=== PATIENT | female | born 1965 | race Caucasian/White ===

== ENCOUNTER 2021-03-24 19:44 | Inpatient (IN) | payer BC ==
[2021-03-24] MEDS ORDERED: Benzonatate 100 MG CAP ONE (20:29)
[2021-03-24] MEDS ORDERED: Enoxaparin Sodium 40 MG/0.4 ML SYRINGE ONE (20:30)
[2021-03-24 22:12] LABS: CKMB 13.7 ng/mL (0-6.6)
[2021-03-25] MEDS ORDERED: Acetaminophen 325 MG TAB ONE (00:06)
[2021-03-25 00:39] LABS: Troponin I 0.627 ng/mL (< 0.028)
[2021-03-25 04:27] LABS: Troponin I 0.443 ng/mL (< 0.028)
[2021-03-25] MEDS ORDERED: traMADol HCl 50 MG TAB ONE (05:02)
[2021-03-25 05:42] VITALS: BMI 15.2
[2021-03-25] MEDS ORDERED: Ondansetron PF 4 MG/2 ML Vial IVP PRN (06:55)
[2021-03-25 07:27] LABS: #Lymphocytes 1.1 thou/uL (1.20-3.40); #Monocytes 0.6 thou/uL (0.11-0.59); #Neutrophils 3.4 thou/uL (1.40-6.50); %Basophils 0.3 % (0.0-1.0); %Eosinophils 0.1 % (0.0-10.0); %Lymphocytes 21.7 % (21.0-51.0); %Monocytes 10.8 % (0.0-10.0); %Neutrophils 67.1 % (42.0-75.0); Hemoglobin 14.3 g/dL (12.0-16.0); Mean Corpuscular Hemoglobin 35.7 pg (27.0-31.0); Platelet Count 196 thou/uL (130-400); Red Blood Cell (RBC) Count 3.99 mill/uL (4.20-5.40); White Blood Cell (WBC) Count 5.1 thou/uL (4.8-10.8)
[2021-03-25 07:42] LABS: ALT (SGPT) 27 U/L (8-55); AST (SGOT) 35 U/L (5-34); Albumin 3.6 g/dL (3.5-5.0); Alkaline Phosphatase 50 U/L (40-110); Bilirubin, Direct 0.1 mg/dL (0.1-0.3); Bilirubin, Total 0.2 mg/dL (0.2-1.2); Protein, Total 6.3 g/dL (6.0-8.3)
[2021-03-25 07:44] LABS: Anion Gap 8 mmol/L (10-20); BUN (Urea Nitrogen) 17 mg/dL (9.8-20.1); Calc. Creatinine Clearance 55 mL/min (70-130); Calcium 9.1 mg/dL (7.8-10.44); Carbon Dioxide 33 mmol/L (22-29); Cardiac Risk 2.5 (Less than 4.5); Chloride 103 mmol/L (98-107); Cholesterol 145 mg/dl (< 200 Desired); Glucose 96 mg/dL (70-105); HDL Cholesterol 57 mg/dL (>60 Neg Risk); LDL Cholesterol, Calculated 76 mg/dL; Potassium 4.3 mmol/L (3.5-5.1); Sodium 140 mmol/L (136-145); Triglycerides 60 mg/dL (Less than 150)
[2021-03-25 08:10] LABS: MDiff Complete? YES; Macrocytosis SLIGHT = 6-15 cells (100X) (0-5/hpf); Platelet Morphology Comment Appears Adequate; Polychromasia SLIGHT = 2-3 cells (100X) (0-2/hpf)
[2021-03-25] MEDS: methylPREDNISolone Sod Succ 40 MG VIAL IVP SCH ×3 (08:38→21:51)
[2021-03-25] MEDS ORDERED: Famotidine 20 MG TAB ONE (09:25)
[2021-03-25] MEDS ORDERED: methylPREDNISolone Sod Succ 40 MG VIAL ONE (09:25)
[2021-03-25] MEDS ORDERED: Ondansetron PF 4 MG/2 ML Vial ONE (09:42)
[2021-03-25] MEDS: Oseltamivir 75 MG CAP PO SCH ×2 (09:50→21:40)
[2021-03-25] MEDS: guaiFENesin ER 600 MG TAB PO SCH ×2 (09:50→21:40)
[2021-03-25] MEDS: Famotidine 20 MG TAB PO SCH ×2 (09:50→21:40)
[2021-03-25] MEDS ORDERED: Clopidogrel Bisulfate 300 MG TAB PO SCH (10:15)
[2021-03-25] MEDS: cefTRIAXone\\ROCEPHIN 2 GM in Sodium Chloride 0.9% 100 ML IVPB SCH (15:54)
[2021-03-25] MEDS: Azithromycin 500 MG in Sodium Chloride 0.9% 250 ML 250 ML IVPB SCH (17:47)
[2021-03-25] MEDS: Acetaminophen 325 MG TAB PO PRN (17:56)
[2021-03-25] MEDS ORDERED: cefTRIAXone\\ROCEPHIN 2 GM in Sodium Chloride 0.9% 100 ML IVPB SCH (18:00)
[2021-03-25] MEDS ORDERED: Azithromycin 500 MG in Sodium Chloride 0.9% 250 ML 250 ML IVPB SCH (18:00)
[2021-03-25] MEDS ORDERED: Albuterol 200 PUFF (6.7GM INHALER) INH PRN (20:47)
[2021-03-25] MEDS ORDERED: Albuterol Sulfate 1.25 MG/3 ML NEB NEB PRN (20:49)
[2021-03-25] MEDS ORDERED: Pravastatin Sodium 20 MG TAB PO SCH (21:00)
[2021-03-25] MEDS ORDERED: Simvastatin 10 MG TAB PO SCH (21:00)
[2021-03-26 04:39] LABS: #Lymphocytes 1.5 thou/uL (1.20-3.40); #Monocytes 0.8 thou/uL (0.11-0.59); #Neutrophils 4.6 thou/uL (1.40-6.50); %Basophils 0.4 % (0.0-1.0); %Eosinophils 0.2 % (0.0-10.0); %Lymphocytes 21.3 % (21.0-51.0); %Monocytes 11.4 % (0.0-10.0); %Neutrophils 66.6 % (42.0-75.0); Mean Corpuscular HGB CONC 32.4 g/dL (32.0-36.0); Mean Corpuscular Hemoglobin 35.4 pg (27.0-31.0); Mean Platelet Volume 7.1 fL (7.4-10.4); Platelet Count 207 thou/uL (130-400); RBC Distribution Width 12.1 % (11.5-14.5); Red Blood Cell (RBC) Count 3.95 mill/uL (4.20-5.40); White Blood Cell (WBC) Count 6.9 thou/uL (4.8-10.8)
[2021-03-26 04:51] LABS: Anion Gap 10 mmol/L (10-20); BUN (Urea Nitrogen) 22 mg/dL (9.8-20.1); Calc. Creatinine Clearance 52 mL/min (70-130); Carbon Dioxide 31 mmol/L (22-29); Chloride 101 mmol/L (98-107); Glucose 87 mg/dL (70-105); Potassium 4.4 mmol/L (3.5-5.1); Sodium 138 mmol/L (136-145)
[2021-03-26] MEDS ORDERED: [UNRECOGNIZED DRUG - OTHER] PO SCH (08:00)
[2021-03-26] MEDS ORDERED: Aspirin/APAP/Caffeine Tab (Excedrin Migraine) PO PRN (08:23)
[2021-03-26] MEDS ORDERED: Bictegrav/Emtricit/Tenofov Ala [Biktarvy 50-200-25 Mg Tablet] PO SCH (09:00)
[2021-03-26] MEDS ORDERED: PRAVACHOL 20 MG PO SCH (09:00)
[2021-03-26] MEDS: Mometasone 200 MCG/Formoterol 5 MCG 120 PUFF INHALER INH SCH ×2 (10:27→18:38)
[2021-03-26] MEDS: Famotidine 20 MG TAB PO SCH (11:01)
[2021-03-26] MEDS: Clopidogrel Bisulfate 75 MG TAB PO SCH (11:01)
[2021-03-26] MEDS: Oseltamivir 75 MG CAP PO SCH ×2 (11:02→21:14)
[2021-03-26] MEDS: guaiFENesin ER 600 MG TAB PO SCH ×2 (11:02→21:13)
[2021-03-26] MEDS: methylPREDNISolone Sod Succ 40 MG VIAL IVP SCH ×3 (11:02→15:45)
[2021-03-26] MEDS ORDERED: Iopamidol-370 76% 500 ML 1 ML ONE (13:53)
[2021-03-26] MEDS: Aspirin/APAP/Caffeine Tab (Excedrin Migraine) PO PRN (15:36)
[2021-03-26] MEDS: cefTRIAXone\\ROCEPHIN 2 GM in Sodium Chloride 0.9% 100 ML IVPB SCH (15:38)
[2021-03-26] MEDS: Azithromycin 500 MG in Sodium Chloride 0.9% 250 ML 250 ML IVPB SCH (16:52)
[2021-03-26] MEDS: ALPRAZolam 0.25 MG TAB PO PRN (18:23)
[2021-03-27] MEDS: methylPREDNISolone Sod Succ 40 MG VIAL IVP SCH ×4 (00:21→23:33)
[2021-03-27 06:05] LABS: #Lymphocytes 0.4 thou/uL (1.20-3.40); #Monocytes 0.2 thou/uL (0.11-0.59); #Neutrophils 6.1 thou/uL (1.40-6.50); %Basophils 0.1 % (0.0-1.0); %Eosinophils 0.1 % (0.0-10.0); %Lymphocytes 5.8 % (21.0-51.0); %Monocytes 2.4 % (0.0-10.0); %Neutrophils 91.7 % (42.0-75.0); Hemoglobin 12.8 g/dL (12.0-16.0); Mean Corpuscular HGB CONC 32.3 g/dL (32.0-36.0); Mean Platelet Volume 7.1 fL (7.4-10.4); Platelet Count 211 thou/uL (130-400); RBC Distribution Width 11.8 % (11.5-14.5); Red Blood Cell (RBC) Count 3.64 mill/uL (4.20-5.40); White Blood Cell (WBC) Count 6.6 thou/uL (4.8-10.8)
[2021-03-27 06:28] LABS: Anion Gap 10 mmol/L (10-20); BUN (Urea Nitrogen) 17 mg/dL (9.8-20.1); Calc. Creatinine Clearance 55 mL/min (70-130); Calcium 8.9 mg/dL (7.8-10.44); Carbon Dioxide 35 mmol/L (22-29); Chloride 99 mmol/L (98-107); Glucose 109 mg/dL (70-105); Potassium 4.4 mmol/L (3.5-5.1); Sodium 140 mmol/L (136-145)
[2021-03-27] MEDS: Mometasone 200 MCG/Formoterol 5 MCG 120 PUFF INHALER INH SCH ×2 (07:24→19:24)
[2021-03-27] MEDS: ALPRAZolam 0.25 MG TAB PO PRN ×3 (07:51→22:03)
[2021-03-27] MEDS: Oseltamivir 75 MG CAP PO SCH ×2 (07:52→20:44)
[2021-03-27] MEDS: guaiFENesin ER 600 MG TAB PO SCH ×2 (07:52→20:44)
[2021-03-27] MEDS: Clopidogrel Bisulfate 75 MG TAB PO SCH (07:54)
[2021-03-27] MEDS ORDERED: PRAVACHOL 20 MG PO SCH (09:00)
[2021-03-27] MEDS: Aspirin/APAP/Caffeine Tab (Excedrin Migraine) PO PRN (10:39)
[2021-03-27] MEDS: cefTRIAXone\\ROCEPHIN 2 GM in Sodium Chloride 0.9% 100 ML IVPB SCH (15:44)
[2021-03-27 16:38] LABS: %CD4 (Helper/Inducer) 30.1 % (30.8-58.5); Absolute CD4 120 /uL (359-1519); Lymphocytes/Gated Cell Count 0.4 x10E3/uL (0.7-3.1); Total Lymphocyte 7 % (Not Estab.); WBC Total Count 5.2 x10E3/uL (3.4-10.8)
[2021-03-27] MEDS: Azithromycin 500 MG in Sodium Chloride 0.9% 250 ML 250 ML IVPB SCH (16:58)
[2021-03-27] MEDS: Bictegrav/Emtricit/Tenofov Ala [Biktarvy 50-200-25 Mg Tablet] PO SCH (20:44)
[2021-03-27] MEDS: Atorvastatin Calcium 10 MG TAB PO SCH (20:44)
[2021-03-28 04:58] LABS: #Lymphocytes 0.3 thou/uL (1.20-3.40); #Monocytes 0.3 thou/uL (0.11-0.59); #Neutrophils 7.5 thou/uL (1.40-6.50); %Eosinophils 0.1 % (0.0-10.0); %Lymphocytes 3.6 % (21.0-51.0); %Monocytes 3.4 % (0.0-10.0); %Neutrophils 92.9 % (42.0-75.0); Hemoglobin 14.2 g/dL (12.0-16.0); Mean Corpuscular HGB CONC 32.5 g/dL (32.0-36.0); Mean Corpuscular Hemoglobin 35.8 pg (27.0-31.0); Platelet Count 235 thou/uL (130-400); RBC Distribution Width 11.8 % (11.5-14.5); Red Blood Cell (RBC) Count 3.96 mill/uL (4.20-5.40)
[2021-03-28 05:10] LABS: BUN (Urea Nitrogen) 17 mg/dL (9.8-20.1); Calc. Creatinine Clearance 53 mL/min (70-130); Calcium 9.4 mg/dL (7.8-10.44); Glucose 118 mg/dL (70-105)
[2021-03-28 05:19] LABS: Anion Gap 14 mmol/L (10-20); Carbon Dioxide 34 mmol/L (22-29); Chloride 98 mmol/L (98-107); Potassium 4.7 mmol/L (3.5-5.1); Sodium 141 mmol/L (136-145)
[2021-03-28] MEDS: Acetaminophen 325 MG TAB PO PRN (05:55)
[2021-03-28] MEDS: Mometasone 200 MCG/Formoterol 5 MCG 120 PUFF INHALER INH SCH ×2 (07:29→18:52)
[2021-03-28] MEDS: Aspirin/APAP/Caffeine Tab (Excedrin Migraine) PO PRN (07:31)
[2021-03-28] MEDS: Clopidogrel Bisulfate 75 MG TAB PO SCH (07:56)
[2021-03-28] MEDS: methylPREDNISolone Sod Succ 40 MG VIAL IVP SCH ×2 (07:56→16:03)
[2021-03-28] MEDS: Oseltamivir 75 MG CAP PO SCH ×2 (07:57→20:10)
[2021-03-28] MEDS: guaiFENesin ER 600 MG TAB PO SCH ×2 (07:57→20:10)
[2021-03-28] MEDS: ALPRAZolam 0.25 MG TAB PO PRN ×2 (08:04→16:13)
[2021-03-28 12:37] LABS: HIV-1 Quantitative, RNA PCR <20 copies/mL (.)
[2021-03-28] MEDS: cefTRIAXone\\ROCEPHIN 2 GM in Sodium Chloride 0.9% 100 ML IVPB SCH (16:03)
[2021-03-28] MEDS: Azithromycin 500 MG in Sodium Chloride 0.9% 250 ML 250 ML IVPB SCH (18:46)
[2021-03-28] MEDS: Atorvastatin Calcium 10 MG TAB PO SCH (20:10)
[2021-03-28] MEDS: Bictegrav/Emtricit/Tenofov Ala [Biktarvy 50-200-25 Mg Tablet] PO SCH (20:14)
[2021-03-29] MEDS: Aspirin/APAP/Caffeine Tab (Excedrin Migraine) PO PRN (00:15)
[2021-03-29] MEDS: ALPRAZolam 0.25 MG TAB PO PRN ×2 (00:19→08:40)
[2021-03-29] MEDS: methylPREDNISolone Sod Succ 40 MG VIAL IVP SCH ×3 (00:20→18:14)
[2021-03-29] MEDS: Mometasone 200 MCG/Formoterol 5 MCG 120 PUFF INHALER INH SCH ×2 (08:35→19:29)
[2021-03-29] MEDS: guaiFENesin ER 600 MG TAB PO SCH ×2 (08:40→20:31)
[2021-03-29] MEDS: Oseltamivir 75 MG CAP PO SCH ×2 (08:40→20:32)
[2021-03-29] MEDS: Clopidogrel Bisulfate 75 MG TAB PO SCH (08:41)
[2021-03-29] MEDS: ALPRAZolam 0.5 MG TAB PO PRN ×2 (15:09→21:06)
[2021-03-29] MEDS: cefTRIAXone\\ROCEPHIN 2 GM in Sodium Chloride 0.9% 100 ML IVPB SCH (17:27)
[2021-03-29] MEDS: Azithromycin 500 MG in Sodium Chloride 0.9% 250 ML 250 ML IVPB SCH (18:18)
[2021-03-29] MEDS: Atorvastatin Calcium 10 MG TAB PO SCH (20:31)
[2021-03-29] MEDS: Bictegrav/Emtricit/Tenofov Ala [Biktarvy 50-200-25 Mg Tablet] PO SCH (20:32)
[2021-03-30] MEDS: methylPREDNISolone Sod Succ 40 MG VIAL IVP SCH ×3 (00:03→16:11)
[2021-03-30] MEDS: Mometasone 200 MCG/Formoterol 5 MCG 120 PUFF INHALER INH SCH (10:09)
[2021-03-30] MEDS: guaiFENesin ER 600 MG TAB PO SCH ×2 (10:22→18:27)
[2021-03-30] MEDS: Clopidogrel Bisulfate 75 MG TAB PO SCH (10:22)
[2021-03-30] MEDS: ALPRAZolam 0.5 MG TAB PO PRN ×3 (10:27→18:27)
[2021-03-30 15:41] VITALS: BP 120/82; TEMP 97.2
[2021-03-30] MEDS: cefTRIAXone\\ROCEPHIN 2 GM in Sodium Chloride 0.9% 100 ML IVPB SCH (16:11)
[2021-03-30] MEDS: Azithromycin 500 MG in Sodium Chloride 0.9% 250 ML 250 ML IVPB SCH (16:59)
[2021-03-30] MEDS: Atorvastatin Calcium 10 MG TAB PO SCH (18:29)
[2021-03-31] MEDS ORDERED: Lisinopril 2.5 MG TAB PO SCH (09:00)
== END 2021-03-30 18:40 | disposition home or self-care (01) | DRG 189 ==
LOC: ERS 19:44 → ERHOLD 22:12 → 2NO 03-25 13:02
PROVIDERS: ADMIT Internal Medicine; ATTEND Student in an Organized Health Care Education/Training Program
DX: J96.01 Acute respiratory failure with hypoxia (principal); I21.A1 Myocardial infarction type 2; E43 Unspecified severe protein-calorie malnutrition; I50.23 Acute on chronic systolic (congestive) heart failure; J44.1 Chronic obstructive pulmonary disease with (acute) exacerbation; Z68.1 Body mass index [BMI] 19.9 or less, adult; F17.210 Nicotine dependence, cigarettes, uncomplicated; R91.1 Solitary pulmonary nodule; J10.1 Influenza due to other identified influenza virus with other respiratory manifestations; Z21 Asymptomatic human immunodeficiency virus [HIV] infection status; F41.9 Anxiety disorder, unspecified; Z88.1 Allergy status to other antibiotic agents; Z79.51 Long term (current) use of inhaled steroids; Z79.899 Other long term (current) drug therapy; Z87.11 Personal history of peptic ulcer disease
CPT/HCPCS: 36415; 71260; 80048; 80061; 80076; 82553; 84484; 85025; 85048; 86361; 87385; 87536; 87631; 87633; 87798; 87899; 89220; 93005; 93306; 94640; 94760; 96372; J0456; J0696; J1650; J2405; J2920; J3490; J7050; J7620; Q9967; U0003; U0005

== ENCOUNTER 2024-03-01 07:58 | Outpatient (CLI) | payer BC | END 2024-03-01 07:59 | disposition home or self-care (01) | LOC: RAD 07:58 | PROVIDERS: ATTEND Internal Medicine Critical Care Medicine | DX: R06.00 Dyspnea, unspecified (principal); J44.9 Chronic obstructive pulmonary disease, unspecified; J98.4 Other disorders of lung | CPT/HCPCS: 71046 ==

== ENCOUNTER 2025-06-29 10:56 | Outpatient (CLI) | payer BC | END 2025-06-29 10:57 | disposition home or self-care (01) | LOC: RAD 10:56 | PROVIDERS: ATTEND Internal Medicine Critical Care Medicine | DX: R06.00 Dyspnea, unspecified (principal); J44.9 Chronic obstructive pulmonary disease, unspecified; J98.4 Other disorders of lung | CPT/HCPCS: 71046 ==